=== PATIENT | female | born 1950 | race African-American/Black ===

== ENCOUNTER 2021-06-26 10:33 | Outpatient (CLI) | payer MEDICARE, SELFPAY ==
[2021-06-26 12:37] LABS: Synovial Fld Mononuclear WBC % 62.2 %; Synovial Fld Polynuclear WBC # 1.185 10^3/uL; Synovial Fld Polynuclear WBC % 37.8 %
[2021-06-26 12:48] LABS: RBC /Synovial Fluid 0.011 10^6/uL (0)
[2021-06-26 13:22] LABS: AUTO B FLUID DILUENT BKGD CT WBC <0.1 RBC <0.01 (W<.1,R<.01); Lymph 19 %; Monocyte /Synovial Fluid 74 %; Neutrophil 5 % (0-25); Other Cell /Synovial Fluid 2 %; Source / Synovial Fluid RIGHT KNEE
[2021-06-26 13:23] LABS: Appearance /Synovial Fluid Cloudy (CLEAR); Color / Synovial Fluid Yellow (Pale Yellow); Synovial Fld Mononuclear WBC # 1.958 10^3/ul
[2021-06-26 13:24] LABS: Body Fluid QC Type(s) BF1Q,BF2Q
[2021-06-30 09:22] LABS: Pathologist Comment Reviewed
== END 2021-06-26 23:59 | disposition short-term general hospital (02) ==
PROVIDERS: PCP Student in an Organized Health Care Education/Training Program; Referring Provider Specialist; Visit Provider Specialist
DX: T84.032A Mechanical loosening of internal right knee prosthetic joint, initial encounter (principal)
CPT/HCPCS: 87015; 87070; 87075; 87101; 87116; 87205; 87206; 89050; 89051